=== PATIENT | female | born 1965 | race African-American/Black ===

== ENCOUNTER 2017-02-15 16:20 | Emergency (ER) | payer OTHER ==
[~2017-02-15] VITALS: Ht 154.9 cm; Wt 82.0 kg
[2017-02-15] MEDS ORDERED: HYDROCODONE/ACETAMINOPHEN 5/325MG TABLET PO ONE (19:00)
[2017-02-15 22:20] VITALS: BP 128/71
== END 2017-02-15 22:40 | disposition home or self-care (01) ==
LOC: ER 16:35
DX: S10.93XA Contusion of unspecified part of neck, initial encounter (principal); S30.0XXA Contusion of lower back and pelvis, initial encounter; I10 Essential (primary) hypertension; V43.52XA Car driver injured in collision with other type car in traffic accident, initial encounter; Y93.89 Activity, other specified; Y92.488 Other paved roadways as the place of occurrence of the external cause
CPT/HCPCS: 72040; 72070; 72100; 99284